=== PATIENT | male | born 1965 | race Two or more races ===

== ENCOUNTER 2017-05-02 09:41 | Emergency (ER) | payer MEDICAID ==
[~2017-05-02] VITALS: Ht 177.8 cm; Wt 99.8 kg
--- NOTE | 2017-05-02 09:59 | NUR ---
Dr Zhu at the bedside for eval and exam.
[2017-05-02 10:05] VITALS: BP 135/85
[2017-05-02] MEDS ORDERED: HYDROCODONE/APAP 10-325 MG TABLET PO ONE (10:15)
[2017-05-02] MEDS ORDERED: HYDROCODONE/APAP 10-325 MG TABLET ONE (10:21)
== END 2017-05-02 10:11 | disposition home or self-care (01) ==
LOC: ER 09:48
DX: K85.90 Acute pancreatitis without necrosis or infection, unspecified (principal); K21.9 Gastro-esophageal reflux disease without esophagitis
CPT/HCPCS: 99283; A4663

== ENCOUNTER 2017-06-06 12:08 | Emergency (ER) | payer MEDICAID ==
[~2017-06-06] VITALS: Ht 177.8 cm; Wt 99.8 kg
[2017-06-06] MEDS ORDERED: HYDR-548 PO (12:16)
[2017-06-06] MEDS ORDERED: ACETAMINOPHEN ES 500 MG TABLET PO ONE (12:45)
[2017-06-06] MEDS ORDERED: MAG HYDROX/AL HYDROX/SIMETH 30 ML LIQUID UDC PO ONE (12:45)
[2017-06-06 12:49] LABS: BASOPHILS % (AUTO) 0.3 % (0.0-2.0); EOSINOPHILS # (AUTO) 0.1 K/uL (0.0-0.7); HEMATOCRIT 48.3 % (40-50); HEMOGLOBIN 15.7 G/DL (14.0-18.0); LYMPHOCYTES # (AUTO) 1.2 K/UL (0.8-4.8); LYMPHOCYTES % (AUTO) 32.4 % (20.5-51.5); MEAN CORPUSCULAR HEMOGLOBIN 28.9 UUG (27.0-31.0); MEAN CORPUSCULAR HGB CONC 33 g/dL (32.0-37.0); MEAN CORPUSCULAR VOLUME 88.7 FL (82.0-92.0); MONOCYTES # (AUTO) 0.2 K/UL (0.1-1.30); MONOCYTES % (AUTO) 5.2 % (0.0-11.0); NEUTROPHILS # (AUTO) 2.1 K/UL (1.8-8.9); NEUTROPHILS % (AUTO) 59.1 % (38.5-71.5); PLATELET COUNT (AUTO) 92 K/UL (150-450); RED BLOOD CELL COUNT(AUTO) 5.45 MIL/UL (4.7-6.1); WHITE BLOOD COUNT (AUTO) 3.6 K/UL (4.0-11.2)
[2017-06-06] MEDS ORDERED: ACETAMINOPHEN ES 500 MG TABLET ONE (12:50)
[2017-06-06] MEDS ORDERED: MAG HYDROX/AL HYDROX/SIMETH 30 ML LIQUID UDC ONE (12:50)
[2017-06-06 12:56] LABS: CREATININE 0.9 mg/dL (0.6-1.3); POTASSIUM 3.8 mmol/L (3.5-5.1)
[2017-06-06] MEDS ORDERED: HYDROCODONE/APAP 5-325MG TABLET PO ONE (13:00)
[2017-06-06 13:02] LABS: BILIRUBIN,DIRECT 0.2 mg/dL (0.0-0.2); BILIRUBIN,TOTAL 1.2 mg/dL (0.2-1.0); TOTAL PROTEIN, SERUM 8.1 g/dL (6.4-8.2)
[2017-06-06] MEDS ORDERED: HYDROCODONE/APAP 5-325MG TABLET ONE (13:03)
--- NOTE | 2017-06-06 13:23 | NUR ---
Patient discharged to home in stable conditon. Written and verbal after care instructions given. Patient verbalizes understanding of instructions.pt walks in steady gait. no sign of distress
[2017-06-06 13:25] VITALS: BP 121/75
[2017-06-06 15:28] LABS: EOSINOPHILS % (MANUAL) 2 % (0-8); LYMPHOCYTES % (MANUAL) 34 % (20-40); MONOCYTES % (MANUAL) 2 % (2-10); NEUTROPHILS % (MANUAL) 62 % (42-75)
== END 2017-06-06 13:27 | disposition home or self-care (01) ==
LOC: ER 12:10
DX: K85.90 Acute pancreatitis without necrosis or infection, unspecified (principal); K21.9 Gastro-esophageal reflux disease without esophagitis
CPT/HCPCS: 36415; 83690; 85025; A4663

== ENCOUNTER 2017-06-23 14:12 | Emergency (ER) | payer MEDICAID ==
[~2017-06-23 14:12] MED LIST: HYDR-548 PO
--- NOTE | 2017-06-23 14:28 | NUR ---
LWBT. CLLED AT [id number] NO ANSWER
== END 2017-06-23 14:25 | disposition left against medical advice (07) ==
LOC: ER 14:12
DX: Z53.21 Procedure and treatment not carried out due to patient leaving prior to being seen by health care provider (principal)

== ENCOUNTER 2017-06-25 16:02 | Emergency (ER) | payer MEDICAID ==
[~2017-06-25] VITALS: Ht 177.8 cm; Wt 99.8 kg
--- NOTE | 2017-06-25 16:50 | NUR ---
PT IS IN ROOM #2B. DR PERKINS EVALUATED THE PT.
--- NOTE | 2017-06-25 17:22 | NUR ---
PT WAS MEDICATED ACCORDING TO ER MD ORDERS. PT TOLERATED TO MEDICATION WITHOUT COMPLICATIONS. PT WAS D/C TO HOME. D/C INSTRUCTIONS GIVEN TO THE PT.
[2017-06-25 17:23] VITALS: BP 131/79
== END 2017-06-25 17:24 | disposition home or self-care (01) ==
LOC: ER 16:04
DX: M54.9 Dorsalgia, unspecified (principal); K21.9 Gastro-esophageal reflux disease without esophagitis
CPT/HCPCS: A4663

== ENCOUNTER 2017-10-27 11:41 | Emergency (ER) | payer MEDICAID ==
[~2017-10-27] VITALS: Ht 177.8 cm; Wt 99.8 kg
[2017-10-27] MEDS ORDERED: HYDROCODONE/APAP 5-325MG TABLET PO ONE (13:15)
[2017-10-27] MEDS ORDERED: HYDROCODONE/APAP 5-325MG TABLET ONE (13:32)
== END 2017-10-27 13:27 | disposition home or self-care (01) ==
LOC: ER 11:43
DX: G89.29 Other chronic pain (principal); R10.11 Right upper quadrant pain; B19.20 Unspecified viral hepatitis C without hepatic coma
CPT/HCPCS: 99283; A4663

== ENCOUNTER 2018-01-10 08:55 | Emergency (ER) | payer MEDICAID ==
[~2018-01-10] VITALS: Ht 177.8 cm; Wt 102.1 kg
--- NOTE | 2018-01-10 09:25 | NUR ---
Patient discharged to home in stable conditon. Written and verbal after care instructions given. Patient verbalizes understanding of instructions.pt walks in steay gait.
== END 2018-01-10 09:27 | disposition home or self-care (01) ==
LOC: ER 08:55
DX: R10.11 Right upper quadrant pain (principal); K21.9 Gastro-esophageal reflux disease without esophagitis; Z79.891 Long term (current) use of opiate analgesic
CPT/HCPCS: A4663